=== PATIENT | female | born 1990 | race Caucasian/White ===

== ENCOUNTER → 2016-03-10 | Outpatient (CLI) | payer BC ==
[~2016-03-10] MED LIST: LAMICTAL 100MG100 MG PO; LOESTRIN 1/20 21DAY PO; NEXPLANON68 MG ID; ZOLOFT 25MG25 MG PO; ZYRTEC 10MG10 MG PO; [UNRECOGNIZED DRUG - OTHER] PO
== END ==
LOC: BHSO 15:17
DX: F90.0 Attention-deficit hyperactivity disorder, predominantly inattentive type (principal)

== ENCOUNTER → 2016-05-29 | Outpatient (CLI) | payer BC | LOC: BHSO 13:19 | DX: F90.0 Attention-deficit hyperactivity disorder, predominantly inattentive type (principal) ==

== ENCOUNTER → 2016-09-11 | Outpatient (CLI) | payer BC | LOC: BHSO 08:49 | DX: F90.0 Attention-deficit hyperactivity disorder, predominantly inattentive type (principal) ==

== ENCOUNTER → 2017-04-07 | Outpatient (CLI) | payer BC | LOC: BHSO 14:40 | DX: F90.0 Attention-deficit hyperactivity disorder, predominantly inattentive type (principal) | CPT/HCPCS: G0463 ==

== ENCOUNTER → 2017-08-31 | Outpatient (CLI) | payer BC | LOC: BHSO 10:41 | DX: F90.0 Attention-deficit hyperactivity disorder, predominantly inattentive type (principal) | CPT/HCPCS: G0463 ==

== ENCOUNTER → 2018-05-09 | Outpatient (CLI) | payer BC | LOC: BHSO 13:49 | DX: F90.0 Attention-deficit hyperactivity disorder, predominantly inattentive type (principal) | CPT/HCPCS: G0463 ==

== ENCOUNTER → 2018-05-23 | Outpatient (CLI) | payer BC | LOC: BHSO 13:55 | DX: F90.0 Attention-deficit hyperactivity disorder, predominantly inattentive type (principal) | CPT/HCPCS: G0463 ==

== ENCOUNTER → 2018-11-28 | Outpatient (CLI) | payer BC | LOC: BHSO 13:31 | DX: F90.0 Attention-deficit hyperactivity disorder, predominantly inattentive type (principal) | CPT/HCPCS: G0463 ==

== ENCOUNTER → 2019-09-21 | Outpatient (CLI) | payer BC | LOC: BHSO 09:34 | DX: F90.0 Attention-deficit hyperactivity disorder, predominantly inattentive type (principal) | CPT/HCPCS: G0463 ==